=== PATIENT | male | born 1955 | race Caucasian/White ===

== ENCOUNTER → 2017-02-21 | Outpatient (CLI) | payer BC ==
--- NOTE | ~2017-02-21 | ECHO ---
Cardiac Stress Test Demographics Patient Name BILL RICHARDSON Date of Study 02/21/2017 Patient Number [id number] Visit Number [id number] Date of 1955 Room Number 1 Gender Male Number Age 61 year(s) Referring Eli Melchor MD Interpreting [facility] [place] Physician Physician Lakshmi Banegas MD Physician Ordering Lakshmi Poultry Service Technician Physician Maria A Melchor MD Supervising Lakshmi Saha Stress Crop Quantitative Geneticist /PAM Banegas MD Nurse Wale Matthews RN Procedure Type of Study Cardiac Stress Test:Tilt Table Study. Procedure Date Date: 02/21/2017 Start: 10:15 AM Indications:Near Syncope. Conclusions Summary Positive tilt table test after nitroglycerin provocation. Patient developed hypotension, relative bradycardia diaphoresis and nausea that resolved after he was brought back down from 60 degrees Risk Factors - The patient's risk factor(s) include: treated dyslipidemia, obesity and arterial hypertension. Stress Protocol Rest ECG Normal sinus rhythm. Pre-Stress Physical Exam Gave one SL nitro 23 minutes into study at 1044 under the direction of Dr Martins Stress Predicted HR: 158 bpm Signature dtt: Hazel Martins dtd: 02/21/17 1015 Physician Self Edit
== END | disposition disaster alternative care site (69) ==
LOC: GCAR 08:40
DX: R55 Syncope and collapse (principal); I95.9 Hypotension, unspecified; R00.1 Bradycardia, unspecified; R61 Generalized hyperhidrosis; R11.0 Nausea; E66.9 Obesity, unspecified; I11.9 Hypertensive heart disease without heart failure; Z86.79 Personal history of other diseases of the circulatory system
CPT/HCPCS: J0461; J7030